=== PATIENT | female | born 1955 | race Caucasian/White ===

== ENCOUNTER 2019-02-19 07:59 | Inpatient (IN) | payer BC, MEDICARE, OTHER ==
[2019-02-19 08:40] LABS: ABSOLUTE BASOPHILS # (AUTO) 0.1 10^3/uL (0.0-0.2); ABSOLUTE EOSINOPHILS # (AUTO) 0.1 10^3/uL (0.0-0.6); ABSOLUTE LYMPHOCYTES (AUTO) 2.3 10^3/uL (0.5-4.7); ABSOLUTE MONOCYTES (AUTO) 0.7 10^3/uL (0.1-1.4); ABSOLUTE NEUT (AUTO) 10.2 10^3/uL (1.7-8.2); BASOPHILS % (AUTO) 0.6 % (0-2); EOSINOPHILS % (AUTO) 0.8 % (0-6); HEMATOCRIT 41.3 % (36.0-47.0); HEMOGLOBIN 13.9 g/dL (12.0-15.5); MEAN CORPUSCULAR HEMOGLOBIN 28.4 pg (27.0-33.4); MEAN CORPUSCULAR HGB CONC 33.7 g/dL (32.0-36.0); MEAN CORPUSCULAR VOLUME 84 fl (80-97); MONOCYTES % (AUTO) 5.4 % (3-13); PLATELET COUNT 282 10^3/uL (150-450); RED BLOOD COUNT 4.91 10^6/uL (3.72-5.28); RED CELL DISTRIBUTION WIDTH 15.4 % (11.5-14.0); SEGMENTED NEUTROPHILS % (AUTO) 76.2 % (42-78); TOTAL CELLS COUNTED % (AUTO) 100 %; WHITE BLOOD COUNT 13.4 10^3/uL (4.0-10.5)
[2019-02-19 08:52] LABS: ACETAMINOPHEN < 10 ug/mL (10-30); ALANINE AMINOTRANSFERASE 95 U/L (9-52); ALBUMIN 5.1 g/dL (3.5-5.0); ALCOHOL < 10 mg/dL (NONE DETECTED); ALKALINE PHOSPHATASE 110 U/L (38-126); ANION GAP 16 (5-19); ASPARTATE AMINO TRANSFERASE 313 U/L (14-36); BILIRUBIN,DIRECT 0.4 mg/dL (0.0-0.4); BILIRUBIN,TOTAL 0.8 mg/dL (0.2-1.3); BLOOD UREA NITROGEN 14 mg/dL (7-20); CALCIUM 9.7 mg/dL (8.4-10.2); CARBON DIOXIDE 27 mmol/L (22-30); CHLORIDE 93 mmol/L (98-107); GLUCOSE 137 mg/dL (75-110); SALICYLATE < 1.0 mg/dL (2.0-20.0); SODIUM 135.8 mmol/L (137-145); TOTAL PROTEIN 8.3 g/dL (6.3-8.2)
[2019-02-19] MEDS ORDERED: POTASSIUM CHLORIDE 10 MEQ CAPSULE.ER PO ONE ×2 (09:01→15:39)
--- NOTE | 2019-02-19 09:20 | RADIOLOGY REPORT (SQ) ---
EXAM DESCRIPTION: CHEST SINGLE VIEW COMPLETED DATE/TIME: 02/19/2019 9:00 am REASON FOR STUDY: cough COMPARISON: None. EXAM PARAMETERS: NUMBER OF VIEWS: One view. TECHNIQUE: Single frontal radiographic view of the chest acquired. RADIATION DOSE: NA LIMITATIONS: None. FINDINGS: LUNGS AND PLEURA: No opacities, masses or pneumothorax. No pleural effusion. MEDIASTINUM AND HILAR STRUCTURES: No masses. Contour normal. HEART AND VASCULAR STRUCTURES: Heart normal in size. Normal vasculature. BONES: No acute findings. HARDWARE: None in the chest. OTHER: No other significant finding. IMPRESSION: NO ACUTE RADIOGRAPHIC FINDING IN THE CHEST. TECHNICAL DOCUMENTATION: JOB ID: [id number] [employer]- All Rights Reserved Reading location - IP/workstation name: [email or web address]
--- NOTE | 2019-02-19 09:41 | ER Document Report ---
Doctor's Note Notes: 02/19/19 09:40 I have evaluated this pt. this am and she has no c/o. She feels all of her needs are being met and her physical exam is normal. She will be assessed by psychiatry later today.
[2019-02-19] MEDS ORDERED: LEVOTHYROXINE SODIUM 0.1 MG TABLET PO ONE (11:24)
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
--- NOTE | 2019-02-19 12:27 | RADIOLOGY REPORT (SQ) ---
EXAM DESCRIPTION: CT HEAD WITHOUT COMPLETED DATE/TIME: 02/19/2019 12:09 pm REASON FOR STUDY: altered mental status COMPARISON: None. TECHNIQUE: Axial images acquired through the brain without intravenous contrast. Images reviewed wi th bone, brain and subdural windows. Additional sagittal and coronal reconstructions were generated. Images stored on PACS. All CT scanners at this facility use dose modulation, iterative reconstruction, and/or weight based d osing when appropriate to reduce radiation dose to as low as reasonably achievable (ALARA). [facility]: Dose Right [facility]: CareDose [facility]: Dose Right [facility]: Teradose 4D [facility]: [employer] RADIATION DOSE: CT Rad equipment meets quality standard of care and radiation dose reduction techniq ues were employed. CTDIvol: 53.2 mGy. DLP: 991 mGy-cm. mGy. LIMITATIONS: None. FINDINGS: VENTRICLES: Normal size and contour. CEREBRUM: No masses. No hemorrhage. No midline shift. No evidence for acute infarction. Normal gra y/white matter differentiation. No areas of low density in the white matter. CEREBELLUM: No masses. No hemorrhage. No alteration of density. No evidence for acute infarction. EXTRAAXIAL SPACES: No fluid collections. No masses. ORBITS AND GLOBE: No intra- or extraconal masses. Normal contour of globe without masses. CALVARIUM: No fracture. PARANASAL SINUSES: Mucosal thickening and air-fluid level of the left maxillary sinus. SOFT TISSUES: No mass or hematoma. OTHER: No other significant finding. IMPRESSION: 1. No acute intracranial pathology. 2. Mucosal thickening and air-fluid level of the left maxillary sinus. Correlate for acute sinusitis . EVIDENCE OF ACUTE STROKE: NO. COMMENT: Quality ID # [id number]: Final reports with documentation of one or more dose reduction techniques (e.g., Automated exposure control, adjustment of the mA and/or kV according to patient size, use of iterative reconstruction technique) TECHNICAL DOCUMENTATION: JOB ID: [id number] [employer]- All Rights Reserved Reading location - IP/workstation name: [email or web address]
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
[2019-02-19] MEDS ORDERED: NORMAL SALINE 1000 ML 1,000 ML IV ONE (15:39)
[2019-02-19 16:52] LABS: APPEARANCE,URINE CLEAR; BILIRUBIN,URINE NEGATIVE (NEGATIVE); COLOR,URINE COLORLESS; GLUCOSE, URINE NEGATIVE (NEGATIVE); KETONES,URINE NEGATIVE (NEGATIVE); LEUKOCYTE ESTERASE,URINE NEGATIVE (NEGATIVE); NITRITE,URINE NEGATIVE (NEGATIVE); PROTEIN,URINE NEGATIVE (NEGATIVE); URINE SPECIFIC GRAVITY 1.002; UROBILINOGEN,URINE NEGATIVE mg/dL (<2.0)
[2019-02-19 17:04] LABS: URINE AMPHETAMINES SCREEN NEGATIVE; URINE BARBITURATES SCREEN NEGATIVE; URINE BENZODIAZEPINES SCREEN NEGATIVE; URINE COCAINE SCREEN NEGATIVE; URINE MARIJUANA (THC) SCREEN NEGATIVE; URINE METHADONE SCREEN NEGATIVE; URINE PHENCYCLIDINE SCREEN NEGATIVE
[2019-02-19] MEDS ORDERED: ACETAMINOPHEN 325 MG TABLET PO ONE (20:34)
--- NOTE | 2019-02-19 22:26 | EKG REPORT ---
SEVERITY:- ABNORMAL ECG - SINUS RHYTHM LAD, CONSIDER LEFT ANTERIOR FASCICULAR BLOCK BORDERLINE T ABNORMALITIES, DIFFUSE LEADS PROLONGED QT INTERVAL : Confirmed by: Lara Goodwin 19-Feb-2019 22:25:35
[2019-02-20 06:23] LABS: ANION GAP 14 (5-19); BLOOD UREA NITROGEN 11 mg/dL (7-20); CALCIUM 9.1 mg/dL (8.4-10.2); CARBON DIOXIDE 19 mmol/L (22-30); CHLORIDE 103 mmol/L (98-107); GLUCOSE 77 mg/dL (75-110); POTASSIUM 3.4 mmol/L (3.6-5.0); SODIUM 136.4 mmol/L (137-145)
[2019-02-20 10:33] LABS: FREE T3 1.73 pg/mL (2.77-5.27); FREE T4 (FREE THYROXINE) 0.21 ng/dL (0.78-2.19)
--- NOTE | 2019-02-20 17:07 | PSYCHOLOGICAL NOTE ---
Psych Note - Psych Note Date seen by psych provider: 02/20/19 Psych Note: Presenting Problem: IVC, Acute psychosis, paranoia, delusions, confusion, irritability. Thyroid and Potassium levels off and required medical attention. Diagnosis: Opioid Withdrawal with Use Disorder, Severe (patient reported has not had any in 2 days, UDS negative) Unspecified Psychosis Medication recommendations made by the psychiatric medical provider, Dr. Bev MD., includes: None at this time. Still want to improve medical conditions. Impression/Plan: Recommendation to maintain IVC. Want to see further improvement of symptoms. Synthroid just started yesterday to address hypothyroidism. Potassium given twice yesterday to address low levels. Consulted with Dr. Ford regarding the management and care of patient. ED Physician in agreement with recommendations.
--- NOTE | 2019-02-20 17:10 | ER Document Report ---
Doctor's Note Notes: 02/20/19 17:10 The patient will remain on Synthroid 100 mcg daily, the psychiatrist wants to wait until she is had more time to stabilize before recommending psychiatric medications. They also want her to be off of her narcotic medications to help clarify what her true mental state is.
[2019-02-20] MEDS ORDERED: LEVOTHYROXINE SODIUM 0.1 MG TABLET PO ONE (18:30)
[2019-02-21] MEDS: LEVOTHYROXINE SODIUM 0.1 MG TABLET PO SCH (09:04)
--- NOTE | 2019-02-21 13:48 | PSYCHOLOGICAL NOTE ---
Psych Note - Psych Note Date seen by psych provider: 02/21/19 Psych Note: Presenting Problem: IVC, Acute psychosis, paranoia, delusions, confusion, irritability. Thyroid and Potassium levels off and required medical attention. Last night patient soiled herself again with feces and medical staff had to assist with clean up. Today asked numerous orientation questions which she answered fairly. She knew where she was, name of hospital, city, was odd on day of week by one day, knew the month, knew the year, knew the current President, answered secondary accurate responses to how items were similar (smooth surface for apple/banana and have wheels/go places for bicycle/train, she could repeat 3 common objects and knew only one after 1 minute delay. She denied SI/HI. She stated she felt better and said "I don't know what was wrong with me when I came in, I was sick." She asked for a blanket, had none and commented "does it look like I have skin on my bones." Attending nurse stated daughter called in. Noted she had father, patient's , at an appointment in [place]. Behavioral Health wants to know baseline of patient from daughter's perspective. Spoke to daughter, Yesenia ([phone]), vie telephone. She stated patient "has not been at baseline for awhile." She reported Wednesday night into morning patient's paranoia and not making sense was noticeable and then worsened Wednesday morning when "it was like a switch flipped." Daughter denied previous MH hx documented or any kind of hospitalizations for MH. She stated patient "had ups and down where the down were bad and you did not want to cross her." She described patient as "a very stubborn and difficult woman." She stated because of this they at first thought it was just an exaggerated from of it, where she was acting like a bitch and they thought she was having a temper tantrum for not getting what she wanted which was to not have to move. Daughter stated a few weeks back she had a heated discussion with patient about becoming guardian since patient was not tending to the house and finances (got evicted, why daughter has been so much mor involved, had to help move them out in short period of time). 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 Daughter reported finding a list of medications which were concerning and included: Xanax, Muscle relaxers, Percocet, Oxycodone, Fentanyl Patches and Gabapentin. She stated patient did have a neck fusion and nerve damage. She has concerns patient is overusing/over medicating. She noted when patient had to get catheter it was clear she was not tending to personal hygiene. She inquired about her thyroid and how she was supposed to get testing done but never went to the doctor. Daughter stated her twin sister resides in another state and can fly in next . This daughter will be available . She stated she wants to try to figure out a list of patient's doctors and medications so everyone is on the same page. She noted concerns about the medications she is prescribed at once, thyroid issues, and withdrawal (since not taking medications). Diagnosis: Opioid Withdrawal with Use Disorder, Severe (patient reported has not had any in 2 days, UDS negative) Unspecified Psychosis Medication recommendations made by the psychiatric medical provider, Dr. Bev MD., includes: None at this time. Still want to improve medical conditions. Impression/Plan: Recommendation to continue IVC. Still believe patient's behaviors and symptoms were medically related. Spoke to daughter about plan to discharge within the next couple days. Consulted with Dr. Ford regarding the management and care of patient. ED Physician in agreement with recommendations.
[2019-02-21] MEDS ORDERED: LEVOTHYROXINE SODIUM 0.1 MG TABLET PO ONE (17:08)
[2019-02-22] MEDS: LEVOTHYROXINE SODIUM 0.1 MG TABLET PO SCH (09:03)
[2019-02-22] MEDS ORDERED: POTASSIUM CHLORIDE 10 MEQ CAPSULE.ER PO ONE (09:29)
--- NOTE | 2019-02-22 09:48 | ER Document Report ---
Doctor's Note Notes: 02/22/19 09:45 Rounds: Chart reviewed and patient attempted to interview. Reviewing the patient's chart I find that the patient apparently has been deteriorating mentally over an extended time. 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 Family reportedly said the patient's mental status has been decreasing gradually. She was presented here this evening for evaluation of a possible psychosis. She is on multiple opioids including fentanyl patches and oral opioids and possibility of opioid withdrawal was considered. She had a CT scan of her head which was reported as maxillary sinusitis but nothing else. Lab studies had a white count of 13,400 but no signs for infection. Potassium was 3.0. Being given some p.o. potassium. Vital signs are all essentially normal. I am still not sure what the patient's underlying altered mental status is due to and she will need further evaluation and assessment. Manjula Brown MD
[2019-02-22] MEDS ORDERED: POTASSIUM CHLORIDE 20 MEQ PACKET PO ONE (09:51)
[2019-02-22] MEDS ORDERED: HALOPERIDOL 2 MG TABLET PO SCH (11:15)
[2019-02-22 11:19] LABS: ABSOLUTE LYMPHOCYTES (AUTO) 1.9 10^3/uL (0.5-4.7); ABSOLUTE MONOCYTES (AUTO) 0.7 10^3/uL (0.1-1.4); ABSOLUTE NEUT (AUTO) 9.7 10^3/uL (1.7-8.2); BASOPHILS % (AUTO) 0.3 % (0-2); HEMATOCRIT 47.5 % (36.0-47.0); HEMOGLOBIN 15.6 g/dL (12.0-15.5); LYMPHOCYTES % (AUTO) 15.5 % (13-45); MEAN CORPUSCULAR HEMOGLOBIN 27.8 pg (27.0-33.4); MEAN CORPUSCULAR HGB CONC 32.8 g/dL (32.0-36.0); MEAN CORPUSCULAR VOLUME 85 fl (80-97); MONOCYTES % (AUTO) 5.3 % (3-13); PLATELET COUNT 353 10^3/uL (150-450); RED BLOOD COUNT 5.61 10^6/uL (3.72-5.28); SEGMENTED NEUTROPHILS % (AUTO) 78.9 % (42-78); TOTAL CELLS COUNTED % (AUTO) 100 %; WHITE BLOOD COUNT 12.3 10^3/uL (4.0-10.5)
[2019-02-22 11:45] LABS: ALANINE AMINOTRANSFERASE 75 U/L (9-52); ALBUMIN 5.1 g/dL (3.5-5.0); ALKALINE PHOSPHATASE 106 U/L (38-126); ASPARTATE AMINO TRANSFERASE 87 U/L (14-36); BILIRUBIN,DIRECT 0.5 mg/dL (0.0-0.4); BILIRUBIN,TOTAL 0.9 mg/dL (0.2-1.3); BLOOD UREA NITROGEN 35 mg/dL (7-20); CALCIUM 9.4 mg/dL (8.4-10.2); CARBON DIOXIDE 18 mmol/L (22-30); CHLORIDE 102 mmol/L (98-107); GLUCOSE 96 mg/dL (75-110); POTASSIUM 3.6 mmol/L (3.6-5.0); SODIUM 141.3 mmol/L (137-145); TOTAL PROTEIN 8.4 g/dL (6.3-8.2)
[2019-02-22 12:00] LABS: FREE T4 (FREE THYROXINE) 0.58 ng/dL (0.78-2.19)
[2019-02-22 12:14] LABS: THYROID STIMULATING HORMONE 95.2 uIU/mL (0.47-4.68)
[2019-02-22 12:15] LABS: ANION GAP 21 (5-19)
[2019-02-22] MEDS: BUSPIRONE HCL 10 MG TABLET PO SCH ×2 (12:24→18:31)
[2019-02-22] MEDS ORDERED: HALOPERIDOL 0.5 MG TABLET PO SCH (18:00)
[2019-02-22] MEDS: HALOPERIDOL 5 MG TABLET PO SCH (18:30)
--- NOTE | 2019-02-23 09:05 | ER Document Report ---
Doctor's Note Notes: 02/23/19 09:03 Rounds: Chart reviewed and patient interviewed. Patient is showing no change in her condition. She is continues to be withdrawn and poorly reactive with staff. Not drinking or eating well. Lab studies repeated yesterday showed patient's chemistries to look like she is dehydrated. Needs some saline. Summary thus far, patient brought in by family with a diagnosis of "psychosis", but no history of any psychiatric disorder. Altered mental status over an extended period. Work-up including CT scan of her head showed maxillary sinusitis, no UTIs. White count very slightly elevated at 12,000. Thyroid dysfunction and has been put on thyroid. Her TSH is coming down. I do not know what is causing this patient's symptoms and her seeming deterioration. I have consulted with the hospitalist service and they are agreeable to admitting the patient for further work-up and evaluation and care. Manjula Brown MD
[2019-02-23] MEDS ORDERED: NORMAL SALINE 1000 ML 1,000 ML IV ONE (09:06)
[2019-02-23] MEDS: HALOPERIDOL 5 MG TABLET PO SCH ×2 (09:43→17:16)
[2019-02-23] MEDS: LEVOTHYROXINE SODIUM 0.1 MG TABLET PO SCH (09:43)
[2019-02-23] MEDS: BUSPIRONE HCL 10 MG TABLET PO SCH ×2 (09:43→17:17)
[2019-02-23] MEDS: NORMAL SALINE 1000 ML 1,000 ML IV PRN ×2 (12:43→22:03)
--- NOTE | 2019-02-23 13:56 | PDOC H&P ---
History of Present Illness Admission Date/PCP: 02/23/19 09:08 MIRIAM HERNANDEZ MD Patient complains of: confusion History of Present Illness: JORDAN ROTHMAN is a 63 year old female with a past medical history of chronic pain syndrome, chronic neck and joint pains, follows with the [place] [facility], and hypothyroidism who was brought in due to increasing confusion. Family is at the bedside. Patient reportedly was on her baseline and does not have any prior psychotic disorder. On Wednesday, she was noted to be slightly confused and agitated. Daughter says that she had increasingly agitated behavior and was becoming more paranoid at home. She was also getting confused and a little disoriented. On Wednesday she was very agitated and hence was particularly brought to the ER on Wednesday. Psych was consulted in the ER. Upon review of labs, work-up was remarkable for a severely elevated TSH in the 200. Daughter did say that a few months back, patient's PCP told her and that she was supposed to see him again due to very abnormal thyroid panel however she did not go through the appointment. Hospitalist service was called and today as her confusion and altered mentation is likely more medical rather than psychiatric in nature. Upon encounter, patient's mentation appears to have significantly improved. She did say she may have also "jambled" her pain meds at home. She was restarted on Synthroid the other day. She is alert and oriented x3. Past Medical History Psychiatric Medical History: Reports: Depression - &anxiety Past Surgical History Past Surgical History: Reports: Orthopedic Surgery Social History Smoking Status: Unknown if Ever Smoked Family History Family History: Reviewed & Not Pertinent Parental Family History Reviewed: Yes - No premature CAD Children Family History Reviewed: No Sibling(s) Family History Reviewed.: No Medication/Allergy Home Medications: Alprazolam [Xanax] 1 mg PO Q8HP PRN 02/23/19 Amlodipine Besylate [Norvasc 5 mg Tablet] 5 mg PO DAILY 02/23/19 Bupropion HCl [Bupropion Xl] 300 mg PO DAILY 02/23/19 Fentanyl [Duragesic 75 Mcg/Hr Transdermal Patch] 1 each TD Q3D 02/23/19 Gabapentin [Neurontin] 800 mg PO Q8 02/23/19 Omeprazole 20 mg PO DAILY 02/23/19 Orphenadrine Citrate 100 mg PO Q12 02/23/19 Oxycodone HCl/Acetaminophen [Oxycodone-Acetaminophen 10-325] 1 each PO QIDP PRN 02/23/19 Rosuvastatin Calcium [Crestor 10 mg Tablet] 10 mg PO QHS 02/23/19 Sertraline HCl [Zoloft] 100 mg PO DAILY 02/23/19 Tizanidine HCl [Zanaflex 4 Mg Tablet] 4 mg PO Q8HP PRN 02/23/19 Allergies/Adverse Reactions: No Known Allergies Allergy (Unverified 02/19/19 08:19) Review of Systems All systems: reviewed and no additional remarkable complaints except as stated - As mentioned in HPI Physical Exam Vital Signs: Temp Pulse Resp BP Pulse Ox 98.7 F 80 16 152/85 H 96 02/22/19 20:00 02/22/19 20:00 02/22/19 20:00 02/22/19 20:00 02/22/19 20:00 Intake & Output 02/22/19 02/23/19 02/24/19 06:59 06:59 06:59 Intake Total 500 Output Total 450 Balance 50 General appearance: PRESENT: no acute distress, well-developed, well-nourished Head exam: PRESENT: atraumatic, normocephalic Eye exam: PRESENT: conjunctiva pink, EOMI, PERRLA. ABSENT: scleral icterus Ear exam: PRESENT: normal external ear exam Mouth exam: PRESENT: moist, tongue midline Neck exam: ABSENT: carotid bruit, JVD, lymphadenopathy, thyromegaly Respiratory exam: PRESENT: clear to auscultation rayna. ABSENT: rales, rhonchi, wheezes Cardiovascular exam: PRESENT: RRR. ABSENT: diastolic murmur, rubs, systolic murmur Pulses: PRESENT: normal dorsalis pedis pul GI/Abdominal exam: PRESENT: normal bowel sounds, soft. ABSENT: distended, g uarding, mass, organolmegaly, rebound, tenderness Rectal exam: PRESENT: deferred Extremities exam: PRESENT: full ROM. ABSENT: calf tenderness, clubbing, pedal edema Neurological exam: PRESENT: alert, awake, oriented to person, oriented to place, oriented to time, CN II-XII grossly intact. ABSENT: motor sensory deficit Results Laboratory Results: 02/22/19 10:49 02/22/19 10:49 02/22/19 02/22/19 02/22/19 10:49 10:49 10:49 WBC 12.3 H RBC 5.61 H Hgb 15.6 H Hct 47.5 H MCV 85 MCH 27.8 MCHC 32.8 RDW 16.0 H Plt Count 353 Seg Neutrophils % 78.9 H Lymphocytes % 15.5 Monocytes % 5.3 Eosinophils % 0.0 Basophils % 0.3 Absolute Neutrophils 9.7 H Absolute Lymphocytes 1.9 Absolute Monocytes 0.7 Absolute Eosinophils 0.0 Absolute Basophils 0.0 Sodium 141.3 Potassium 3.6 Chloride 102 Carbon Dioxide 18 L Anion Gap 21 H BUN 35 H Creatinine 1.20 Est GFR ( Amer) 55 L Est GFR (Non-Af Amer) 45 L Glucose 96 Calcium 9.4 Total Bilirubin 0.9 AST 87 H ALT 75 H Alkaline Phosphatase 106 Total Protein 8.4 H Albumin 5.1 H TSH 95.20 H Free T4 0.58 L Impressions: Chest X-Ray 02/19/19 08:44 IMPRESSION: NO ACUTE RADIOGRAPHIC FINDING IN THE CHEST. Head CT 02/19/19 11:51 IMPRESSION: 1. No acute intracranial pathology. 2. Mucosal thickening and air-fluid level of the left maxillary sinus. Correlate for acute sinusitis. EVIDENCE OF ACUTE STROKE: NO. Assessment and Plan - Diagnosis (1) Acute encephalopathy Is this a current diagnosis for this admission?: Yes Plan: Patient's acute encephalopathy is likely secondary to severe hypothyroidism. 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 Appears her mentation is significantly improved and is almost close to baseline. She was restarted on oral Synthroid the other day. No strong indication for IV Synthroid now as she has significantly improved. Will increase p.o. Synthroid to 175 mcg daily. Repeat TSH has significantly improved from 200 to 95. No strong indication for empiric hydrocortisone at this time as blood pressures are now running in the higher end we but will go ahead and check a cortisol level. Patient did say she may have also "jambled" her pain meds at home and this could have potentially contributed to the acute encephalopathy. (2) Severe hypothyroidism Is this a current diagnosis for this admission?: Yes Plan: As per #1. (3) Acute renal failure Is this a current diagnosis for this admission?: Yes Plan: Continue IV fluids. Repeat BMP. (4) Hypokalemia Is this a current diagnosis for this admission?: Yes Plan: Currently getting potassium replacement. Will repeat BMP later today. - Time Time Spent with patient: 25-34 minutes
--- NOTE | 2019-02-23 13:59 | ADVANCED CARE ---
- Diagnosis (1) Acute encephalopathy Diagnosis Current: Yes (2) Acute renal failure Diagnosis Current: Yes (3) Severe hypothyroidism Diagnosis Current: Yes (4) Hypokalemia Diagnosis Current: Yes Attendance: With patient and family including and daughter, Yesenia on the bedside. Patient says she is a full code and prefers chest compressions, defibrillation and mechanical ventilation if the need arises. She does verbalize she does not want to be on prolonged ventilation, does not want to pursue tracheostomy or prolonged artificial feeding. She says she wants her whole family to be her surrogate decision maker but did indicate that Yesenia will be the main "program director/air personality" as her has sustained some cognitive issues from a TBI. Resuscitation Status: Full Code
[2019-02-23] MEDS ORDERED: (PENDING PHARMACY ID) (Oxycodone Hcl/Acetaminophen [Oxycodone-Acetaminophen 10-325] 1 EACH PO PRN (14:29)
--- NOTE | 2019-02-23 15:53 | PSYCHOLOGICAL NOTE ---
Psych Note - Psych Note Date seen by psych provider: 02/23/19 Time seen by psych provider: 11:00 Psych Note: Presenting Problem: IVC, Acute psychosis, paranoia, delusions, confusion, irritability. Check in with patient: Diagnosis: Opioid Use/dependency Disorder, Severe Medication recommendations made by the psychiatric medical provider, Dr. Bev MD., includes: Haldol 2.5mg Twice daily or 5mg daily to assist with withdrawal symptoms; adjust to as needed after 72 hours Buspar 5mg Twice daily for anxiety please discontinue home medications of Welbutrin, xanax, and zoloft Impression/Plan:Patient is recommended for rescind of IVC and is cleared from acute psychiatric services. Patient is has admitted for medical to [facility] for her ongoing medical concerns. Patient's presentation has improved in connection to her AMS. At this time, it appears the patient's initial presentation and subsequent AMS is in direct correlation to her medical issues and withdrawal from pain medications. Patient is highly encouraged to discuss alternate therapy for pain management with her PCM.
[2019-02-23] MEDS ORDERED: AMLODIPINE BESYLATE 5 MG TABLET PO ONE (16:00)
[2019-02-23] MEDS: HYDRALAZINE HCL INJ/PF 20 MG/1 ML SDV IV PRN (17:28)
[2019-02-23] MEDS ORDERED: BUPROPION HCL 100 MG TABLET PO SCH (22:00)
[2019-02-23] MEDS: ATORVASTATIN CALCIUM 20 MG TABLET PO SCH (22:05)
[2019-02-23] MEDS: HEPARIN SOD (PORCINE) 5,000 UNIT/ML 1 ML SYRINGE SUBCUT SCH (22:05)
[2019-02-24] MEDS ORDERED: LEVOTHYROXINE SODIUM 0.15 MG TABLET PO SCH (06:00)
[2019-02-24] MEDS: LEVOTHYROXINE SODIUM 0.075 MG TABLET PO SCH (06:18)
[2019-02-24] MEDS: LEVOTHYROXINE SODIUM 0.1 MG TABLET PO SCH (06:19)
[2019-02-24 06:21] LABS: ABSOLUTE LYMPHOCYTES (AUTO) 1.9 10^3/uL (0.5-4.7); ABSOLUTE MONOCYTES (AUTO) 0.7 10^3/uL (0.1-1.4); BASOPHILS % (AUTO) 0.2 % (0-2); EOSINOPHILS % (AUTO) 0.2 % (0-6); HEMATOCRIT 41.8 % (36.0-47.0); HEMOGLOBIN 14.1 g/dL (12.0-15.5); LYMPHOCYTES % (AUTO) 16.1 % (13-45); MEAN CORPUSCULAR HEMOGLOBIN 28.4 pg (27.0-33.4); MEAN CORPUSCULAR HGB CONC 33.7 g/dL (32.0-36.0); MEAN CORPUSCULAR VOLUME 84 fl (80-97); MONOCYTES % (AUTO) 6.2 % (3-13); PLATELET COUNT 237 10^3/uL (150-450); RED BLOOD COUNT 4.98 10^6/uL (3.72-5.28); RED CELL DISTRIBUTION WIDTH 15.7 % (11.5-14.0); SEGMENTED NEUTROPHILS % (AUTO) 77.3 % (42-78); TOTAL CELLS COUNTED % (AUTO) 100 %; WHITE BLOOD COUNT 11.7 10^3/uL (4.0-10.5)
[2019-02-24 06:42] LABS: ANION GAP 11 (5-19); BLOOD UREA NITROGEN 19 mg/dL (7-20); CALCIUM 8.4 mg/dL (8.4-10.2); CARBON DIOXIDE 23 mmol/L (22-30); CHLORIDE 106 mmol/L (98-107); GLUCOSE 90 mg/dL (75-110); SODIUM 139.7 mmol/L (137-145)
[2019-02-24 06:50] LABS: POTASSIUM 2.7 mmol/L (3.6-5.0)
[2019-02-24 06:58] LABS: FREE T3 1.42 pg/mL (2.77-5.27); FREE T4 (FREE THYROXINE) 0.61 ng/dL (0.78-2.19)
[2019-02-24] MEDS: NORMAL SALINE 1000 ML 1,000 ML IV PRN ×2 (08:36→19:00)
[2019-02-24] MEDS ORDERED: POTASSIUM CHLORIDE 10 MEQ CAPSULE.ER PO ONE (09:00)
[2019-02-24] MEDS: OXYCODONE HCL IR 5 MG TABLET PO PRN ×2 (09:13→21:11)
[2019-02-24] MEDS: OXYCODONE-ACETAMINOPHEN 5-325 MG TABLET PO PRN ×2 (09:13→21:11)
[2019-02-24] MEDS: POTASSI CL 20 MEQ/50 ML RIDER 20 MEQ/50 ML RTUPB IV SCH ×2 (09:14→12:09)
[2019-02-24] MEDS: HALOPERIDOL 5 MG TABLET PO SCH ×2 (09:14→17:16)
[2019-02-24] MEDS: HEPARIN SOD (PORCINE) 5,000 UNIT/ML 1 ML SYRINGE SUBCUT SCH ×2 (09:14→21:07)
[2019-02-24] MEDS: BUSPIRONE HCL 10 MG TABLET PO SCH ×2 (09:14→17:16)
[2019-02-24] MEDS: AMLODIPINE BESYLATE 5 MG TABLET PO SCH (09:15)
[2019-02-24] MEDS ORDERED: SERTRALINE HCL 50 MG TABLET PO SCH (10:00)
[2019-02-24] MEDS ORDERED: (PENDING PHARMACY ID) (Bupropion Hcl [Bupropion Xl] 300 MG) PO SCH (10:00)
--- NOTE | 2019-02-24 14:43 | PDOC PROGRESS REPORT ---
Subjective Progress Note for:: 02/24/19 Subjective:: This is a 63 year old female with a past medical history of chronic pain syndrome, chronic neck and joint pains, follows with the [place] [facility], and hypothyroidism who was brought in due to increasing confusion. She was admitted for acute encephalopathy likely related to severe hypothyroidism and multiple narcotic/psychotropic medications contributing to the confusion. No acute event overnight. She continues to improve. No recurrence of agitation or combative behavior. She is comfortable, alert and well oriented this morning. Reason For Visit: ACUTE ENCEPHALOPATHY,SEVERE HYPOTHYROIDISM, Physical Exam Vital Signs: Temp Pulse Resp BP Pulse Ox 97.6 F 71 16 160/90 H 92 02/24/19 08:10 02/24/19 08:10 02/24/19 08:10 02/24/19 08:10 02/24/19 08:10 Intake & Output 02/23/19 02/24/19 02/25/19 06:59 06:59 06:59 Intake Total 893 006 3747 Output Total 450 Balance 50 983 1050 Weight 125 lb 3.561 oz General appearance: PRESENT: no acute distress, well-developed, well-nourished Head exam: PRESENT: atraumatic, normocephalic Eye exam: PRESENT: conjunctiva pink, EOMI, PERRLA. ABSENT: scleral icterus Ear exam: PRESENT: normal external ear exam Mouth exam: PRESENT: moist, tongue midline Neck exam: ABSENT: carotid bruit, JVD, lymphadenopathy, thyromegaly Respiratory exam: PRESENT: clear to auscultation rayna. ABSENT: rales, rhonchi, wheezes Cardiovascular exam: PRESENT: RRR. ABSENT: diastolic murmur, rubs, systolic m urmur Pulses: PRESENT: normal dorsalis pedis pul GI/Abdominal exam: PRESENT: normal bowel sounds, soft. ABSENT: distended, guarding, mass, organolmegaly, rebound, tenderness Rectal exam: PRESENT: deferred Extremities exam: PRESENT: full ROM. ABSENT: calf tenderness, clubbing, pedal edema Neurological exam: PRESENT: alert, awake, oriented to person, oriented to place, oriented to time, oriented to situation, CN II-XII grossly intact. ABSENT: motor sensory deficit Results Laboratory Results: 02/24/19 05:41 02/24/19 05:41 02/24/19 02/24/19 02/24/19 05:41 05:41 05:41 WBC 11.7 H RBC 4.98 Hgb 14.1 Hct 41.8 MCV 84 MCH 28.4 MCHC 33.7 RDW 15.7 H Plt Count 237 Seg Neutrophils % 77.3 Lymphocytes % 16.1 Monocytes % 6.2 Eosinophils % 0.2 Basophils % 0.2 Absolute Neutrophils 9.0 H Absolute Lymphocytes 1.9 Absolute Monocytes 0.7 Absolute Eosinophils 0.0 Absolute Basophils 0.0 Sodium 139.7 Potassium 2.7 L* Chloride 106 Carbon Dioxide 23 Anion Gap 11 BUN 19 Creatinine 0.67 Est GFR ( Amer) > 60 Est GFR (Non-Af Amer) > 60 Glucose 90 Calcium 8.4 TSH 103.00 H Free T4 0.61 L Free T3 pg/mL 1.42 L Impressions: Chest X-Ray 02/19/19 08:44 IMPRESSION: NO ACUTE RADIOGRAPHIC FINDING IN THE CHEST. Head CT 02/19/19 11:51 IMPRESSION: 1. No acute intracranial pathology. 2. Mucosal thickening and air-fluid level of the left maxillary sinus. Correlate for acute sinusitis. EVIDENCE OF ACUTE STROKE: NO. Assessment and Plan - Diagnosis (1) Acute encephalopathy Is this a current diagnosis for this admission?: Yes Plan: 02/23: Patient's acute encephalopathy is likely secondary to severe hypothyroidism. 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 Appears her mentation is significantly improved and is almost close to baseline. She was restarted on oral Synthroid the other day. No strong indication for IV Synthroid now as she has significantly improved. Will increase p.o. Synthroid to 175 mcg daily. Repeat TSH has significantly improved from 200 to 95. No strong indication for empiric hydrocortisone at this time as blood pressures are now running in the higher end we but will go ahead and check a cortisol level. Patient did say she may have also "jambled" her pain meds at home and this could have potentially contributed to the acute encephalopathy. 02/24: Improving. Psychotropic medications, Xanax and opiates held as per psych recommendation as well. (2) Severe hypothyroidism Is this a current diagnosis for this admission?: Yes Plan: 02/24: Synthroid increased to 175 mcg yesterday. Continue current dose for now. (3) Acute renal failure Is this a current diagnosis for this admission?: Yes Plan: 02/24: Resolved. Creatinine is back to baseline with IV fluids. Decrease normal saline down to 50 cc/h. (4) Hypokalemia Is this a current diagnosis for this admission?: Yes Plan: Repeat potassium is still low at 2.7. Will give another 60 meqs PO and 40 meqs IV replacement. - Time Time Spent with patient: 25-34 minutes
[2019-02-24] MEDS: ATORVASTATIN CALCIUM 20 MG TABLET PO SCH (21:07)
[2019-02-25] MEDS: NORMAL SALINE 1000 ML 1,000 ML IV PRN ×2 (05:00→15:04)
[2019-02-25] MEDS: LEVOTHYROXINE SODIUM 0.1 MG TABLET PO SCH (06:22)
[2019-02-25] MEDS: LEVOTHYROXINE SODIUM 0.075 MG TABLET PO SCH (06:22)
[2019-02-25] MEDS: HYDRALAZINE HCL INJ/PF 20 MG/1 ML SDV IV PRN (08:00)
[2019-02-25] MEDS: HALOPERIDOL 5 MG TABLET PO SCH (09:16)
[2019-02-25] MEDS: BUSPIRONE HCL 10 MG TABLET PO SCH (09:16)
[2019-02-25] MEDS: HEPARIN SOD (PORCINE) 5,000 UNIT/ML 1 ML SYRINGE SUBCUT SCH ×2 (09:17→21:13)
[2019-02-25] MEDS: AMLODIPINE BESYLATE 5 MG TABLET PO SCH (09:17)
--- NOTE | 2019-02-25 11:58 | PDOC PROGRESS REPORT ---
Subjective Progress Note for:: 02/25/19 Subjective:: This is a 63 year old female with a past medical history of chronic pain syndrome, chronic neck and joint pains, follows with the [place] [facility], and hypothyroidism who was brought in due to increasing confusion. She was admitted for acute encephalopathy likely related to severe hypothyroidism and multiple narcotic/psychotropic medications contributing to the confusion. She continues to improve. No recurrence of agitation or combative behavior. She is comfortable, alert and well oriented this morning. 02/25: No acute event overnight. No recurrence of confusion. She appears comfortable and is alert and oriented x4. Her psychotropic and opiates have b een held. No agitation or psychotic episodes. Will repeat thyroid panel tomorrow. Anticipating discharge in the next 24 to 48 hours. Reason For Visit: ACUTE ENCEPHALOPATHY,SEVERE HYPOTHYROIDISM, Physical Exam Vital Signs: Temp Pulse Resp BP Pulse Ox 98.8 F 66 20 160/80 H 97 02/25/19 11:32 02/25/19 11:32 02/25/19 11:32 02/25/19 11:50 02/25/19 11:32 Intake & Output 02/24/19 02/25/19 02/26/19 06:59 06:59 06:59 Intake Total 983 3440 0 Balance 983 3440 0 Weight 125 lb 3.561 oz 124 lb 12.506 oz General appearance: PRESENT: no acute distress, well-developed, well-nourished Head exam: PRESENT: atraumatic, normocephalic Eye exam: PRESENT: conjunctiva pink, EOMI, PERRLA. ABSENT: scleral icterus Ear exam: PRESENT: normal external ear exam Mouth exam: PRESENT: moist, tongue midline Neck exam: ABSENT: carotid bruit, JVD, lymphadenopathy, thyromegaly Respiratory exam: PRESENT: clear to auscultation rayna. ABSENT: rales, rhonchi, wheezes Cardiovascular exam: PRESENT: RRR. ABSENT: diastolic murmur, rubs, systolic murmur Pulses: PRESENT: normal dorsalis pedis pul GI/Abdominal exam: PRESENT: normal bowel sounds, soft. ABSENT: distended, guarding, mass, organolmegaly, rebound, tenderness Rectal exam: PRESENT: deferred Extremities exam: PRESENT: full ROM. ABSENT: calf tenderness, clubbing, pedal edema Neurological exam: PRESENT: alert, awake, oriented to person, oriented to place, oriented to time, oriented to situation, CN II-XII grossly intact. ABSENT: motor sensory deficit Results Laboratory Results: 02/24/19 05:41 02/24/19 15:05 02/24/19 15:05 Potassium 3.8 D Impressions: Chest X-Ray 02/19/19 08:44 IMPRESSION: NO ACUTE RADIOGRAPHIC FINDING IN THE CHEST. Head CT 02/19/19 11:51 IMPRESSION: 1. No acute intracranial pathology. 2. Mucosal thickening and air-fluid level of the left maxillary sinus. Correlate for acute sinusitis. EVIDENCE OF ACUTE STROKE: NO. Assessment and Plan - Diagnosis (1) Acute encephalopathy Is this a current diagnosis for this admission?: Yes Plan: 02/23: Patient's acute encephalopathy is likely secondary to severe hypothyroidism. 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 Appears her mentation is significantly improved and is almost close to baseline. She was restarted on oral Synthroid the other day. No strong indication for IV Synthroid now as she has significantly improved. Will increase p.o. Synthroid to 175 mcg daily. Repeat TSH has significantly improved from 200 to 95. No strong indication for empiric hydrocortisone at this time as blood pressures are now running in the higher end we but will go ahead and check a cortisol level. Patient did say she may have also "jambled" her pain meds at home and this could have potentially contributed to the acute encephalopathy. 02/24: Improving. Psychotropic medications, Xanax and opiates held as per psych recommendation as well. 02/25: No recurrence of confusion. She appears comfortable and is alert and oriented x4. Her psychotropic meds and opiates have been held. No agitation or psychotic episodes. Will repeat thyroid panel tomorrow. Anticipating discharge in the next 24 to 48 hours. (2) Severe hypothyroidism Is this a current diagnosis for this admission?: Yes Plan: 02/24: Synthroid increased to 175 mcg yesterday. Continue current dose for now. 02/25: Will repeat thyroid panel tomorrow. (3) Acute renal failure Is this a current diagnosis for this admission?: Yes Plan: 02/24: Resolved. Creatinine is back to baseline with IV fluids. Decrease normal saline down to 50 cc/h. (4) Hypokalemia Is this a current diagnosis for this admission?: Yes Plan: 02/24: Repeat potassium is still low at 2.7. Will give another 60 meqs PO and 40 meqs IV replacement. 02/25: Resolved. - Time Time Spent with patient: 25-34 minutes
[2019-02-25] MEDS: OXYCODONE HCL IR 5 MG TABLET PO PRN ×2 (12:00→21:13)
[2019-02-25] MEDS: OXYCODONE-ACETAMINOPHEN 5-325 MG TABLET PO PRN ×2 (12:00→21:12)
[2019-02-25] MEDS ORDERED: AMLODIPINE BESYLATE 5 MG TABLET PO PRN (21:05)
[2019-02-25] MEDS: ATORVASTATIN CALCIUM 20 MG TABLET PO SCH (21:12)
[2019-02-26] MEDS: OXYCODONE HCL IR 5 MG TABLET PO PRN ×4 (04:03→22:28)
[2019-02-26] MEDS: OXYCODONE-ACETAMINOPHEN 5-325 MG TABLET PO PRN ×4 (04:04→22:29)
[2019-02-26] MEDS: LEVOTHYROXINE SODIUM 0.1 MG TABLET PO SCH (05:23)
[2019-02-26] MEDS: LEVOTHYROXINE SODIUM 0.075 MG TABLET PO SCH (05:23)
[2019-02-26 05:46] LABS: ABSOLUTE EOSINOPHILS # (AUTO) 0.1 10^3/uL (0.0-0.6); ABSOLUTE LYMPHOCYTES (AUTO) 2.7 10^3/uL (0.5-4.7); ABSOLUTE MONOCYTES (AUTO) 0.7 10^3/uL (0.1-1.4); ABSOLUTE NEUT (AUTO) 6.3 10^3/uL (1.7-8.2); BASOPHILS % (AUTO) 0.5 % (0-2); EOSINOPHILS % (AUTO) 1.1 % (0-6); HEMATOCRIT 42.2 % (36.0-47.0); HEMOGLOBIN 14.3 g/dL (12.0-15.5); LYMPHOCYTES % (AUTO) 27.3 % (13-45); MEAN CORPUSCULAR HEMOGLOBIN 28.4 pg (27.0-33.4); MEAN CORPUSCULAR HGB CONC 33.9 g/dL (32.0-36.0); MEAN CORPUSCULAR VOLUME 84 fl (80-97); MONOCYTES % (AUTO) 6.7 % (3-13); PLATELET COUNT 244 10^3/uL (150-450); RED BLOOD COUNT 5.04 10^6/uL (3.72-5.28); RED CELL DISTRIBUTION WIDTH 15.4 % (11.5-14.0); SEGMENTED NEUTROPHILS % (AUTO) 64.4 % (42-78); TOTAL CELLS COUNTED % (AUTO) 100 %; WHITE BLOOD COUNT 9.8 10^3/uL (4.0-10.5)
[2019-02-26 06:08] LABS: ALANINE AMINOTRANSFERASE 44 U/L (9-52); ALBUMIN 3.8 g/dL (3.5-5.0); ALKALINE PHOSPHATASE 70 U/L (38-126); ANION GAP 14 (5-19); ASPARTATE AMINO TRANSFERASE 39 U/L (14-36); BILIRUBIN,DIRECT 0.4 mg/dL (0.0-0.4); BILIRUBIN,TOTAL 1.1 mg/dL (0.2-1.3); BLOOD UREA NITROGEN 12 mg/dL (7-20); CALCIUM 8.6 mg/dL (8.4-10.2); CARBON DIOXIDE 22 mmol/L (22-30); CHLORIDE 99 mmol/L (98-107); GLUCOSE 84 mg/dL (75-110); SODIUM 134.6 mmol/L (137-145); TOTAL PROTEIN 6.4 g/dL (6.3-8.2)
[2019-02-26 06:12] LABS: POTASSIUM 2.7 mmol/L (3.6-5.0)
[2019-02-26] MEDS: POTASSI CL 20 MEQ/50 ML RIDER 20 MEQ/50 ML RTUPB IV SCH ×2 (06:46→08:54)
[2019-02-26] MEDS ORDERED: POTASSIUM CHLORIDE 10 MEQ CAPSULE.ER PO ONE ×2 (07:00→17:00)
[2019-02-26] MEDS: HEPARIN SOD (PORCINE) 5,000 UNIT/ML 1 ML SYRINGE SUBCUT SCH ×2 (09:57→22:26)
[2019-02-26] MEDS: AMLODIPINE BESYLATE 5 MG TABLET PO SCH (09:57)
[2019-02-26] MEDS: HYDRALAZINE HCL INJ/PF 20 MG/1 ML SDV IV PRN (11:37)
--- NOTE | 2019-02-26 13:51 | PDOC PROGRESS REPORT ---
Subjective Progress Note for:: 02/26/19 Subjective:: This is a 63 year old female with a past medical history of chronic pain syndrome, chronic neck and joint pains, follows with the [place] [facility], and hypothyroidism who was brought in due to increasing confusion. She was admitted for acute encephalopathy likely related to severe hypothyroidism and multiple narcotic/psychotropic medications contributing to the confusion. She continues to improve. No recurrence of agitation or combative behavior. She is comfortable, alert and well oriented this morning. 02/25: No recurrence of confusion. She appears comfortable and is alert and oriented x4. Her psychotropic and opiates have been held. No agitation or psychotic episodes. Will repeat thyroid panel tomorrow. Anticipating discharge in the next 24-48 hours. 02/26: No acute event overnight. Potassium came back severely low today at 2.7. Apparently she only ate very little yesterday. She refused to sit up out of the bed yesterday. She does appear more conversant and more cheerful today. She denies acute complaints. Replace potassium and encourage ambulation. Encouraged to increase intake today. Anticipating discharge in the next 24 hours. Reason For Visit: ACUTE ENCEPHALOPATHY,SEVERE HYPOTHYROIDISM, Physical Exam Vital Signs: Temp Pulse Resp BP Pulse Ox 98.5 F 80 15 150/80 H 98 02/26/19 11:23 02/26/19 11:23 02/26/19 11:23 02/26/19 12:59 02/26/19 11:23 Intake & Output 02/25/19 02/26/19 02/27/19 06:59 06:59 06:59 Intake Total 3440 1617 220 Output Total 600 Balance 3440 1017 220 Weight 124 lb 12.506 oz 120 lb 2.431 oz General appearance: PRESENT: no acute distress, well-developed, well-nourished Head exam: PRESENT: atraumatic, normocephalic Eye exam: PRESENT: conjunctiva pink, EOMI, PERRLA. ABSENT: scleral icterus Ear exam: PRESENT: normal external ear exam Mouth exam: PRESENT: moist, tongue midline Neck exam: ABSENT: carotid bruit, JVD, lymphadenopathy, thyromegaly Respiratory exam: PRESENT: clear to auscultation rayna. ABSENT: rales, rhonchi, wheezes Cardiovascular exam: PRESENT: RRR. ABSENT: diastolic murmur, rubs, systolic murmur Pulses: PRESENT: normal dorsalis pedis pul GI/Abdominal exam: PRESENT: normal bowel sounds, soft. ABSENT: distended, guarding, mass, organolmegaly, rebound, tenderness Rectal exam: PRESENT: deferred Extremities exam: PRESENT: full ROM. ABSENT: calf tenderness, clubbing, pedal edema Neurological exam: PRESENT: alert, awake, oriented to person, oriented to place, oriented to time, oriented to situation, CN II-XII grossly intact. ABSENT: motor sensory deficit Results Laboratory Results: 02/26/19 05:27 02/26/19 05:27 02/26/19 02/26/19 02/26/19 05:27 05:27 05:27 WBC 9.8 RBC 5.04 Hgb 14.3 Hct 42.2 MCV 84 MCH 28.4 MCHC 33.9 RDW 15.4 H Plt Count 244 Seg Neutrophils % 64.4 Lymphocytes % 27.3 Monocytes % 6.7 Eosinophils % 1.1 Basophils % 0.5 Absolute Neutrophils 6.3 Absolute Lymphocytes 2.7 Absolute Monocytes 0.7 Absolute Eosinophils 0.1 Absolute Basophils 0.0 Sodium 134.6 L Potassium 2.7 L* Chloride 99 Carbon Dioxide 22 Anion Gap 14 BUN 12 Creatinine 0.64 Est GFR ( Amer) > 60 Est GFR (Non-Af Amer) > 60 Glucose 84 Calcium 8.6 Magnesium Total Bilirubin 1.1 AST 39 H ALT 44 Alkaline Phosphatase 70 Total Protein 6.4 Albumin 3.8 TSH 92.30 H 02/26/19 05:27 WBC RBC Hgb Hct MCV MCH MCHC RDW Plt Count Seg Neutrophils % Lymphocytes % Monocytes % Eosinophils % Basophils % Absolute Neutrophils Absolute Lymphocytes Absolute Monocytes Absolute Eosinophils Absolute Basophils Sodium Potassium Chloride Carbon Dioxide Anion Gap BUN Creatinine Est GFR ( Amer) Est GFR (Non-Af Amer) Glucose Calcium Magnesium 2.1 Total Bilirubin AST ALT Alkaline Phosphatase Total Protein Albumin TSH Impressions: Chest X-Ray 02/19/19 08:44 IMPRESSION: NO ACUTE RADIOGRAPHIC FINDING IN THE CHEST. Head CT 02/19/19 11:51 IMPRESSION: 1. No acute intracranial pathology. 2. Mucosal thickening and air-fluid level of the left maxillary sinus. Correlate for acute sinusitis. EVIDENCE OF ACUTE STROKE: NO. Assessment and Plan - Diagnosis (1) Acute encephalopathy Is this a current diagnosis for this admission?: Yes Plan: 02/23: Patient's acute encephalopathy is likely secondary to severe hypothyroidism. 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 Appears her mentation is significantly improved and is almost close to baseline. She was restarted on oral Synthroid the other day. No strong indication for IV Synthroid now as she has significantly improved. Will increase p.o. Synthroid to 175 mcg daily. Repeat TSH has significantly improved from 200 to 95. No strong indication for empiric hydrocortisone at this time as blood pressures are now running in the higher end we but will go ahead and check a cortisol level. Patient did say she may have also "jambled" her pain meds at home and this could have potentially contributed to the acute encephalopathy. 02/24: Improving. Psychotropic medications, Xanax and opiates held as per psych recommendation as well. 02/25: No recurrence of confusion. She appears comfortable and is alert and oriented x4. Her psychotropic meds and opiates have been held. No agitation or psychotic episodes. Will repeat thyroid panel tomorrow. Anticipating discharge in the next 24 to 48 hours. 02/26: Resolved. (2) Severe hypothyroidism Is this a current diagnosis for this admission?: Yes Plan: 02/24: Synthroid increased to 175 mcg yesterday. Continue current dose for now. 02/25: Will repeat thyroid panel tomorrow. 02/26: TSH improved. Continue synthroid. (3) Acute renal failure Is this a current diagnosis for this admission?: Yes Plan: 02/24: Resolved. Creatinine is back to baseline with IV fluids. Decrease normal saline down to 50 cc/h. (4) Hypokalemia Is this a current diagnosis for this admission?: Yes Plan: 02/24: Repeat potassium is still low at 2.7. Will give another 60 meqs PO and 40 meqs IV replacement. 02/25: Resolved. 02/26: Potassium came back low again at 2.7. Replace with PO and IV KCl. - Time Time Spent with patient: 15-24 minutes
[2019-02-26] MEDS: ATORVASTATIN CALCIUM 20 MG TABLET PO SCH (22:26)
[2019-02-27] MEDS: OXYCODONE HCL IR 5 MG TABLET PO PRN ×2 (04:36→10:53)
[2019-02-27] MEDS: OXYCODONE-ACETAMINOPHEN 5-325 MG TABLET PO PRN ×2 (04:36→10:52)
[2019-02-27] MEDS: LEVOTHYROXINE SODIUM 0.075 MG TABLET PO SCH (05:59)
[2019-02-27] MEDS: LEVOTHYROXINE SODIUM 0.1 MG TABLET PO SCH (05:59)
[2019-02-27 06:33] LABS: ANION GAP 12 (5-19); BLOOD UREA NITROGEN 15 mg/dL (7-20); CALCIUM 8.7 mg/dL (8.4-10.2); CARBON DIOXIDE 21 mmol/L (22-30); CHLORIDE 103 mmol/L (98-107); GLUCOSE 91 mg/dL (75-110); POTASSIUM 3.5 mmol/L (3.6-5.0); SODIUM 135.8 mmol/L (137-145)
[2019-02-27] MEDS: AMLODIPINE BESYLATE 5 MG TABLET PO SCH (09:22)
[2019-02-27] MEDS: HEPARIN SOD (PORCINE) 5,000 UNIT/ML 1 ML SYRINGE SUBCUT SCH (09:22)
[2019-02-27] MEDS ORDERED: POTASSIUM CHLORIDE 10 MEQ CAPSULE.ER PO SCH (10:00)
[2019-02-27 12:27] VITALS: BP 174/86
--- NOTE | 2019-02-27 19:44 | PDOC DISCHARGE SUMMARY ---
General - Admit/Disc Date/PCP Admission Date/Primary Care Provider: 02/23/19 09:08 MIRIAM HERNANDEZ MD Discharge Date: 02/27/19 - Discharge Diagnosis (1) Acute encephalopathy Is this a current diagnosis for this admission?: Yes (2) Severe hypothyroidism Is this a current diagnosis for this admission?: Yes (3) Acute renal failure Is this a current diagnosis for this admission?: Yes (4) Hypokalemia Is this a current diagnosis for this admission?: Yes - Additional Information Resuscitation Status: Full Code Discharge Diet: As Tolerated Discharge Activity: Activity As Tolerated, Balance Activity w/Rest Prescriptions: Buspirone HCl [Buspar 5 mg Tablet] 1 tab PO BID #30 tab Levothyroxine Sodium [Synthroid 0.075 mg Tablet] 0.075 mg PO Q6AM #30 tablet Levothyroxine Sodium [Synthroid 0.1 mg Tablet] 0.1 mg PO Q6AM #30 tablet Potassium Chloride 20 meq PO BID #12 tab.er.prt Home Medications: Gabapentin [Neurontin] 800 mg PO Q8 02/23/19 Omeprazole 20 mg PO DAILY 02/23/19 Orphenadrine Citrate 100 mg PO Q12 02/23/19 Oxycodone HCl/Acetaminophen [Oxycodone-Acetaminophen 10-325] 1 each PO QIDP PRN 02/23/19 Rosuvastatin Calcium [Crestor 10 mg Tablet] 10 mg PO QHS 02/23/19 Tizanidine HCl [Zanaflex 4 mg Tablet] 4 mg PO Q8HP PRN 02/23/19 Buspirone HCl [Buspar 5 mg Tablet] 1 tab PO BID #30 tab 02/27/19 Levothyroxine Sodium [Synthroid 0.075 mg Tablet] 0.075 mg PO Q6AM #30 tablet 02/27/19 Levothyroxine Sodium [Synthroid 0.1 mg Tablet] 0.1 mg PO Q6AM #30 tablet 02/27/19 Potassium Chloride 20 meq PO BID #12 tab.er.prt 02/27/19 History of Present Illness History of Present Illness: JORDAN ROTHMAN is a 63 year old female with a past medical history of chronic pain syndrome, chronic neck and joint pains, follows with the [facility] [facility], and hypothyroidism who was brought in due to increasing confusion. Family is at the bedside. Patient reportedly was on her baseline and does not h ave any prior psychotic disorder. On Wednesday, she was noted to be slightly confused and agitated. Daughter says that she had increasingly agitated behavior and was becoming more paranoid at home. She was also getting confused and a little disoriented. On Wednesday she was very agitated and hence was particularly brought to the ER on Wednesday. Psych was consulted in the ER. Upon review of labs, work-up was remarkable for a severely elevated TSH in the 200. Daughter did say that a few months back, patient's PCP told her and that she was supposed to see him again due to very abnormal thyroid panel however she did not go through the appointment. Hospitalist service was called and today as her confusion and altered mentation is likely more medical rather than psychiatric in nature. Upon encounter, patient's mentation appears to have significantly improved. She did say she may have also "jambled" her pain meds at home. She was restarted on Synthroid the other day. She is alert and oriented x3. Hospital Course Hospital Course: This is a 63 year old female with a past medical history of chronic pain syndrome, chronic neck and joint pains, follows with the [facility] [facility], and hypothyroidism who was brought in due to increasing confusion. She was admitted for acute encephalopathy likely related to severe hypothyroidism and multiple narcotic/psychotropic medications contributing to the confusion. 02/23: Patient's acute encephalopathy is likely secondary to severe hypothyroidism. 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 Appears her mentation is significantly improved and is almost close to baseline. She was restarted on oral Synthroid the other day. No strong indication for IV Synthroid now as she has significantly improved. Increase p.o. Synthroid to 175 mcg daily. Repeat TSH has significantly improved from 200 to 95. No strong indication for empiric hydrocortisone at this time as blood pressures are now running in the higher end we but will go ahead and check a cortisol level. Patient did say she may have also "jambled" her pain meds at home and this could have potentially contributed to the acute encephalopathy. 02/24: Improving. Psychotropic medications, Xanax and opiates held as per psych recommendation as well. 6: No recurrence of confusion. She appears comfortable and is alert and oriented x4. Her psychotropic meds and opiates have been held. No agitation or psychotic episodes. She continued to improveand returned to her baseline. Her pain meds and psych meds were adjusted per psych recs. She was not placed on fentanyl patch since admission and her chronic pain was very well controlled with oxycodone prn. She did not have opiate withdrawal symptoms as well. Her JONATHAN also resolved with IV fluids. She did have poor oral intake and was given Potassium supplements. Intake improved and she also started ambulating on the hallway with no issues. She will be discharged home and will need close ff- up with PCP for a repeat thyroid panel. Physical Exam Vital Signs: Temp Pulse Resp BP Pulse Ox 98.4 F 74 17 174/86 H 98 02/27/19 12:22 02/27/19 12:22 02/27/19 12:22 02/27/19 12:22 02/27/19 12:22 Intake & Output 02/26/19 02/27/19 02/28/19 06:59 06:59 06:59 Intake Total 1617 580 100 Output Total 600 600 Balance 1017 -20 100 Weight 120 lb 2.431 oz 119 lb 0.794 oz General appearance: PRESENT: no acute distress, well-developed, well-nourished Head exam: PRESENT: atraumatic, normocephalic Eye exam: PRESENT: conjunctiva pink, EOMI, PERRLA. ABSENT: scleral icterus Ear exam: PRESENT: normal external ear exam Mouth exam: PRESENT: moist, tongue midline Neck exam: ABSENT: carotid bruit, JVD, lymphadenopathy, thyromegaly Respiratory exam: PRESENT: clear to auscultation rayna. ABSENT: rales, rhonchi, wheezes Cardiovascular exam: PRESENT: RRR. ABSENT: diastolic murmur, rubs, systolic murmur Pulses: PRESENT: normal dorsalis pedis pul GI/Abdominal exam: PRESENT: normal bowel sounds, soft. ABSENT: distended, g uarding, mass, organolmegaly, rebound, tenderness Rectal exam: PRESENT: deferred Extremities exam: PRESENT: full ROM. ABSENT: calf tenderness, clubbing, pedal edema Neurological exam: PRESENT: alert, awake, oriented to person, oriented to place, oriented to time, oriented to situation, CN II-XII grossly intact. ABSENT: mo tor sensory deficit Results Laboratory Results: 02/26/19 05:27 02/27/19 05:59 02/27/19 05:59 Sodium 135.8 L Potassium 3.5 L Chloride 103 Carbon Dioxide 21 L Anion Gap 12 BUN 15 Creatinine 0.59 Est GFR ( Amer) > 60 Est GFR (Non-Af Amer) > 60 Glucose 91 Calcium 8.7 02/22/19 12:13 Blood Blood Culture - Final NO GROWTH IN 5 DAYS 02/22/19 10:49 Blood Blood Culture - Final NO GROWTH IN 5 DAYS Impressions: Chest X-Ray 02/19/19 08:44 IMPRESSION: NO ACUTE RADIOGRAPHIC FINDING IN THE CHEST. Head CT 02/19/19 11:51 IMPRESSION: 1. No acute intracranial pathology. 2. Mucosal thickening and air-fluid level of the left maxillary sinus. Correlate for acute sinusitis. EVIDENCE OF ACUTE STROKE: NO. Qualifiers - * PATIENT BEING DISCHARGED WITH ANY OF THE FOLLOWING DIAGNOSIS: No Acute Heart Failure - Is this a Heart Failure Patient?: No LVEF < 40%?: No- if no continue to question #3 3. Anticoagulant therapy for permanect/persistent/paraoxysmal Afib or Aflutter: N/A
== END 2019-02-27 15:21 | disposition home health service (06) | DRG 917 ==
LOC: ER 07:59 → UNDOADMIN 02-23 07:00 → EH 02-23 07:00 → 3W 02-23 11:41
PROVIDERS: ADMIT Internal Medicine; ATTEND Internal Medicine
DX: T40.2X1A Poisoning by other opioids, accidental (unintentional), initial encounter (principal); E03.5 Myxedema coma; G93.49 Other encephalopathy; F11.23 Opioid dependence with withdrawal; N17.9 Acute kidney failure, unspecified; F17.203 Nicotine dependence unspecified, with withdrawal; E87.6 Hypokalemia; E86.0 Dehydration; F29 Unspecified psychosis not due to a substance or known physiological condition; E03.9 Hypothyroidism, unspecified; F32.9 Major depressive disorder, single episode, unspecified; F41.9 Anxiety disorder, unspecified; F22 Delusional disorders; G89.4 Chronic pain syndrome; J01.00 Acute maxillary sinusitis, unspecified
CPT/HCPCS: 36415; 70450; 71045; 80048; 80053; 80307; 81001; 82533; 83735; 84132; 84439; 84443; 84481; 85025; 87040; 93005; 93010; J0360; J1644; J3480; J3490; J7030